=== PATIENT | female | born 1970 | race Caucasian/White ===

== ENCOUNTER → 2019-09-05 10:22 | Outpatient (BNVA) | payer SELFPAY | PROVIDERS: Family Provider Nurse Practitioner; PCP Nurse Practitioner; Visit Provider Obstetrics & Gynecology Female Pelvic Medicine and Reconstructive Surgery | DX: R35.0 Frequency of micturition (principal) | CPT/HCPCS: 81001 ==

== ENCOUNTER → 2020-01-11 11:52 | Outpatient (BNVA) | payer SELFPAY | PROVIDERS: Family Provider Nurse Practitioner; PCP Nurse Practitioner Family; Visit Provider Nurse Practitioner Family | DX: E11.9 Type 2 diabetes mellitus without complications (principal); F41.9 Anxiety disorder, unspecified; R35.0 Frequency of micturition; K21.9 Gastro-esophageal reflux disease without esophagitis; J44.9 Chronic obstructive pulmonary disease, unspecified; N39.3 Stress incontinence (female) (male) | CPT/HCPCS: 80053; 80061; 81000; 82607; 83036; 84443; 85025 ==

== ENCOUNTER → 2020-01-17 09:29 | Outpatient (BNVA) | payer SELFPAY | PROVIDERS: Family Provider Nurse Practitioner; PCP Nurse Practitioner Family; Visit Provider Nurse Practitioner Family | DX: D64.9 Anemia, unspecified (principal) | CPT/HCPCS: 85025 ==

== ENCOUNTER → 2020-01-24 09:47 | Outpatient (BNVA) | payer SELFPAY | PROVIDERS: Family Provider Nurse Practitioner; PCP Nurse Practitioner Family; Visit Provider Nurse Practitioner Family | DX: D64.9 Anemia, unspecified (principal) | CPT/HCPCS: 85025 ==

== ENCOUNTER → 2020-02-07 09:49 | Outpatient (BNVA) | payer SELFPAY | PROVIDERS: Family Provider Nurse Practitioner; PCP Nurse Practitioner Family; Visit Provider Nurse Practitioner Family | DX: D64.9 Anemia, unspecified (principal) | CPT/HCPCS: 85025 ==

== ENCOUNTER 2020-03-08 11:47 | Emergency (ER) | payer SELFPAY ==
[2020-03-08 12:28] VITALS: BP 142/89; PULSE 73; RESP 14; TEMP 36.2; O2SAT 98; BMI 28.3
--- NOTE | 2020-03-08 12:31 | XR_ITS ---
WS: [id number] Left elbow, 3 views, 03/08/2020 Clinical Data: FALL Comparison: None. Findings: There is a dislocation of the elbow posteriorly. There is a small fracture fragment which is adjacent to the left radial head. The donor site of the f racture fragment is probably the anterior spur of the olecranon. XR/XR elbow LT min 3V* [id number] Impression: 1. Dislocation of the olecranon and radial head posteriorly from the distal lef t humerus. 2. Fracture of the olecranon spur.
--- NOTE | 2020-03-08 12:31 | XR_ITS ---
WS: [id number] Left wrist, 3 views, 03/08/2020 Clinical Data: FALL Comparison: Left wrist, 11/24/2017. Findings: There is a comminuted impacted dorsally displaced fracture of the distal left radius. There is an uln ar styloid fracture. The carpal bones are intact. Soft tissue swelling about the fracture site is not ed. XR/XR wrist LT min 3V* [id number] Impression: Dorsally displaced comminuted fracture of distal left radius along with simple fracture of the ulnar styloid.
[2020-03-08 12:47] VITALS: RESP 18
--- NOTE | 2020-03-08 12:56 | XR_ITS ---
WS: [id number] Left arm and humerus, 2 views, 03/08/2020 Clinical Data: Fall/injury Comparison: None. Findings: The shaft of the left humerus is intact. The visualized left shoulder shows no abnormalities. There i s a dislocation of the olecranon and radial head posteriorly from the distal left humerus. The soft t issues are normal. XR/[place] [id number] Impression: 1. Dislocated left elbow. 2. Intact left humeral shaft.
--- NOTE | 2020-03-08 12:56 | XR_ITS ---
WS: [id number] Left forearm, AP and lateral views, 03/08/2020 Clinical Data: Fall/injury Comparison: None. Findings: The left elbow dislocation again is visible. There is a comminuted impacted dorsally displaced fractu re of the distal left radius. The shaft of the ulna is intact. The shaft of the radius is intact XR/XR forearm LT 2V 12741 Impression: 1. Left elbow dislocation. 2. Impacted dorsally displaced fracture of the distal left radius.
--- NOTE | 2020-03-08 12:57 | ED_ITS ---
HPI - Extremity Problem General: Chief complaint: Extremity Injury, Upper Stated complaint: L ARM INJURY Time Seen by Provider: 03/08/20 12:40 Source: patient Mode of arrival: ambulatory Limitations: no limitations History of Present Illness: HPI Narrative: Alaina is a nice 49-year-old female who comes in complaining of left arm pain after falling. She states she just fell off the back gate of a pickup truck landing on her left arm. She has pain primarily in her elbow and wrist. She denies any head or neck pain or injury. She had no loss of consciousness. She denies any injuries or pain to her torso. She states she has pain primarily at the wrist with the elbow hurts a good deal as well. Patient denies any numbness or weakness of her hand or fingers but does state that she has increased pain when she tries to move her left arm at all. Patient denies any other injuries or concerns at this time. Associated symptoms: Deny chest pain, fever(s) or rash Review of Systems Const: Denies: fever(s) Eyes: Denies: change in vision or blurry vision ENMT: Denies: throat pain or hoarseness Card: Denies: chest pain, palpitations, syncope, pre-syncope or dyspnea on exertion Resp: Denies: dyspnea, productive cough or non-productive cough GI: Denies: abdominal pain, nausea, vomiting or diarrhea : Denies: flank pain, dysuria, urinary frequency or urinary urgency Musc: Reports: extremity pain and joint pain; Denies: neck pain or back pain Skin/Breast: Denies: rash or pruritus Neuro: Denies: headache(s), numbness in extremities, weakness in extremities or dizziness [facility] PFSH: Medical History (Updated 03/08/20 @ 14:56 by Jennifer Fonseca) Anemia Diagnosed with anemia in 2018 thought secondary to menorrhagia and was taking iron and vitamin B12. Anxiety Chronic GERD Managed with Nexium. Has not had an endoscopy. COPD (chronic obstructive pulmonary disease) Diagnosed in 2017 and controlled with medication. Surgical History History of delivery (~1990) done by a vertical midline infraumbilical incision History of tubal ligation (~2000) laparoscopic procedure after last childbirth Hx of cholecystectomy (~1989) open procedure done by right upper quadrant incision Status post surgery (~2007) stone extracted from common bile duct, with stent Family History Mother Diabetes Hypertension Father Diabetes Hypertension Colon cancer Diagnosed at age 69 Stroke Grandmother Colon cancer maternal--diagnosed in her 80s Denies family history of Ovarian cancer Breast cancer Anesthesia complication Uterine cancer Social History Smoking and tobacco status: current every day smoker cigarettes Packs smoked per day: 0.5 Years cigarettes smoked: 30 Second hand smoke exposure: Yes Alcohol intake: never Lives independently: Yes Household members: spouse Marital status: History of recent travel: No Current gender identity: Female Additional social history: - Tobacco Use: She started smoking at 12 years old and currently smokes 1/2 pack per day.she is not motivated to cut down Drug Use: Denies Alcohol Use: Denies Current Work/Study: 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 She states that her is paralyzed and she takes care of him Physical Exam Const: COMMON NORMALS: no acute distress, patient oriented x3, no limitations, healthy appearing and well nourished GENERAL APPEARANCE: cooperative, well kempt and well developed HENMT: COMMON NORMALS: normocephalic, atraumatic, external ears normal, EAC's normal and Normal external nose present HEAD & SCALP: normal to inspection, normocephalic and atraumatic FACE & SINUS: normal facial exam and face symmetric NOSE: Normal external nose present and Normal nares present EXTERNAL EAR: Yes external ears normal EXTERNAL AUDITORY CANAL: EAC's normal MOUTH: Normal oral and palatal mucosa present, lip normal and tongue normal Eye: COMMON NORMALS: Equal, round and reactive pupils present and conjunctivae normal GENERAL EYE: appearance normal, both eyes and all related structures ALIGNMENT: Yes alignment normal PERIORBITAL: periorbital findings normal EYELID: eyelids normal CONJUNCTIVA: Yes conjunctivae normal SCLERA: sclerae normal PUPIL: Yes Equal, round and reactive pupils present Neck/C-Spine: COMMON NORMALS: full ROM, no lymphadenopathy, supple, no meningeal signs and no JVD GENERAL: Yes normal visual inspection and Yes trachea midline Chest: COMMONS NORMALS: normal inspection of the chest and normal palpation of entire chest wall Resp: COMMON NORMALS: normal respiratory effort, No retractions, No use of accessory muscles and clear to auscultation bilaterally EFFORT & INSPECTION: Yes able to speak in complete sentences and Yes symmetric chest movement AUSCULTATION: clear to auscultation bilaterally, no crackles, no rales, no rhonchi and no wheezes Cardio: COMMON NORMALS: no JVD, regular rate, regular rhythm, S1 normal heart sound present and S2 normal heart sound present RATE: regular rate RHYTHM: regular rhythm HEART SOUNDS: S1 normal heart sound present, S2 normal heart sound present, no click, no gallops, no murmurs, no rubs and abnormal split S2 GI: COMMON NORMALS: Soft to palpation and No hepatosplenomegaly present PALPATION: Yes Soft to palpation, No Tenderness to palpation present (GI), No Guarding due to palpation present (GI), No Rigid due to palpation, Yes No hepatosplenomegaly present, No Hernia present, No Palpable mass present and No Pulsatile mass present : COMMON NORMALS: Yes no CVA tenderness BLADDER/KIDNEY EXAM: Yes no CVA tenderness EXTERNAL FEMALE EXAM: No Hernia present Back/Pelvis: COMMON NORMALS: no CVA tenderness, thoracic and lumbar spine normal to inspection, no thoracic nor lumbar tenderness and thoraco-lumbar ROM normal Extremity: COMMON NORMALS: capillary refill normal, no clubbing, cyanosis or edema and no calf tenderness NARRATIVE EXTREMITY EXAM: Left elbow tender to palpation with mild swelling. Limited range of motion secondary to pain. Left wrist tenderness and swollen to palpation. Strong radial pulse and normal sensation and muscle strength to the fingers. Neuro: COMMON NORMALS: patient oriented x3, CN's II-XII intact bilaterally, moves all extremities, no focal motor deficits and no sensory deficits noted MENINGEAL SIGNS: Yes no meningeal signs SPEECH: speech normal Psych: COMMON NORMALS: mental status grossly normal, Normal thought process present, cooperative, normal affect, speech normal and activity/motor behavior normal APPEARANCE: Yes well kempt SPEECH: Yes normal speech THOUGHT PROCESS: Normal thought process present Skin: COMMON NORMALS: no rashes or lesions noted, turgor normal, no jaundice, no petechiae and no mottling GENERAL SKIN EXAM: no rashes or lesions noted and turgor normal Procedures Orthopedic Joint Reduction Joint #1: Time Out Performed: Yes Side: left Joint Reduction Location: elbow Analgesia: procedural sedation Technique used: traction/counter-traction Post-reduction neuro exam: intact Post-reduction vascular: intact Post Reduction X-Ray Obtained: Yes Post Reduction X-Ray Results: reduced Splint Applied: Yes Patient Tolerated Procedure: well Procedural Sedation Indication: fracture/dislocation reduction Presedation Evaluation: As above ASA Class: I Preparation: cardiac monitor technician applied, pulse oximeter, supplemental O2 applied, reversal agents at bedside, suction/airway equipment at bedside and IV secured IV Propofol dose (mg): 175 Complications: none Course Vital Signs: Vital signs: Vital Signs Temperature 97.2 F L 03/08/20 12:28 Pulse Rate 81 03/08/20 15:23 Respiratory Rate 18 03/08/20 15:23 Blood Pressure 123/85 03/08/20 15:23 Pulse Oximetry 98 03/08/20 15:23 MDM - Extremity (Nontraumatic) MDM Narrative: Medical decision making narrative: The case had been reviewed with Dr. Calix he felt the patient would need referral to a hand surgeon. I discussed the case with Dr. Duenas at [facility]. He has reviewed the x-rays and agrees to see the patient tomorrow at his office at 11 AM with probable surgery. Patient has been reduced and he agrees that this is a good reduction and he will arrange for surgery tomorrow. She understands remain n.p.o. and will follow-up there at 11 AM. The patient's elbow was reduced adequately while here in the ER with Dr. Duenas agreed her wrist was significant and would likely have to be definitively fixed in the OR. He did not think an attempt at this time would be necessary. Lab Data: Labs: Lab Results 03/08/20 Range/Units 13:40 SARS-CoV-2 Ag (Rap id) Negative (Negative) Imaging Data^: Right shoulder/Humerus: Attestation: I personally reviewed and interpreted this imaging study as f rei: My impression: No acute fractures dislocation Right Elbow: Attestation: I personally reviewed and interpreted this imaging study as follows: My impression: Posterior dislocation with chip fracture of uncertain source Right Elbow Post Reduction: Attestation: I personally reviewed and interpreted this imaging study as follows: My impression: Satisfactory reduction of left elbow Right forearm: Attestation: I personally reviewed and interpreted this imaging study as follows: My impression: No midshaft forearm fractures, see wrist x-ray for details Right wrist: Attestation: I personally reviewed and interpreted this imaging study as follows: My impression: Comminuted distal radius fracture and ulnar styloid fracture. Dorsal displacement present. Discharge Plan Discharge Patient Disposition: Home Clinical Impression: Dislocation closed, elbow Qualifiers: Encounter type: initial encounter Laterality: left Qualified Code(s): S53.105A - Unspecified dislocation of left ulnohumeral joint, initial encounter Left wrist fracture Qualifiers: Encounter type: initial encounter Fracture type: closed Qualified Code(s): S62.102A - Fracture of unspecified carpal bone, left wrist, initial encounter for closed fracture Condition: Stable Prescriptions: [place] 5-325 mg tablet 1 tab PO Q6H PRN (Reason: pain) 5 Days Qty: 20 RF: 0 Zofran 4 mg tablet 4 mg PO Q6H PRN (Reason: nausea and vomiting) Qty: 20 RF: 0 No Action albuterol sulfate 1.25 mg/3 mL solution for nebulization 1.25 mg INHALATION QID PRNRF: 0 lisinopril 2.5 mg tablet 2.5 mg PO DAILY Qty: 30 RF: 5 sertraline [Zoloft] 100 mg tablet 100 mg PO DAILY Qty: 30 RF: 5 esomeprazole magnesium [Nexium] 40 mg capsule,delayed release(DR/EC) 40 mg PO DAILY Qty: 30 RF: 5 fluticasone propion-salmeterol [Advair Diskus] 250-50 mcg/dose blister with device 1 inh INHALATION BID Qty: 60 RF: 5 albuterol sulfate [ProAir HFA] 90 mcg/actuation HFA aerosol inhaler 2 puff INHALATION Q6H PRN (Reason: shortness of breath or wheezing) Qty: 18 RF: 2 montelukast [Singulair] 10 mg tablet 10 mg PO DAILY Qty: 30 RF: 5 diclofenac sodium 75 mg tablet,delayed release (DR/EC) 75 mg PO BID PRN (Reason: pain) Qty: 60 RF: 2 atorvastatin 20 mg tablet 20 mg PO DAILY Qty: 30 RF: 5 amitriptyline 25 mg tablet 25 mg PO DAILY Qty: 30 RF: 2 Discharge Orders: Discharge Order (Routine); Ordered 03/08/20 Ordered By: Jennifer Fonseca Referrals: Geneva Lackey FNP [Primary Care Provider] - 4-7 days Discharge Diet: Usual diet Discharge Activity: Limit activity as instructed Patient Instructions: Elbow Dislocation (ED), Wrist Fracture in Adults (ED) Activity Restrictions/Additional Instructions: Please return to the ER immediately for any of the signs or symptoms listed on your discharge instruction sheets, worsening/changing of your symptoms, you are not getting better as quickly as expected, or for ANY other cause or concerns. Call today to ensure what time you will need to be present and have your surgery tomorrow by Dr. Duenas. His office number is [phone]. Be certain to call today for instructions on where to be tomorrow as he is expecting you at the [facility] on [address] at 11 AM. Discharge Date/Time: 03/08/20 15:28 Coding Level of Care Code ED Cut Off Saw Operator for Vicky Fwd Exam Comprehensive
[2020-03-08] MEDS: morphine 4 mg/mL SDV 1 mL IVP (13:20)
[2020-03-08] MEDS: ondansetron 2 mg/ML SDV 2 mL 4 MG IVP (13:20)
[2020-03-08] MEDS: sodium chloride 0.9% 1,000 ML 100 ML IV (13:21)
[2020-03-08 14:05] VITALS: BP 138/80; PULSE 88; RESP 18; O2SAT 98
[2020-03-08 14:08] LABS: SARS Covid-2 Antigen Negative (Negative)
--- NOTE | 2020-03-08 14:17 | XR_ITS ---
NOTE: Report was unsigned for reason: Order was edited. Original Signature date and time was: 03/08/2020 1436 WS: [id number] Left elbow, 2 views, 03/08/2020, 1416 hours Clinical Data: post reduction Comparison: Left elbow, 03/08/2020, 1308 hours Findings: The elbow has been reduced. There is a positive posterior fat pad sign. The small evulsion fracture may be overlying the left radial head. MTDD XR/XR elbow LT min 3V* 10030 Impression: Reduction of left elbow posterior dislocation.
[2020-03-08 14:27] VITALS: BP 123/85; PULSE 81; RESP 18; O2SAT 98
[2020-03-08] MEDS: propofol 10 mg/mL SDV 20 mL 250 MG IVP (14:30)
--- NOTE | 2020-03-08 14:32 | XR_ITS ---
WS: [id number] Left shoulder, 3 views, 03/08/2020 Clinical Data: Pain/injury Comparison: None. Findings: No fractures or dislocations are seen. The AC joint is normal. The adjacent left clavicle, left scapu la and ribs are normal. The soft tissues are unremarkable. XR/XR shoulder LT min 2V* [id number] Impression: Negative left shoulder.
[2020-03-08 15:23] VITALS: BP 123/85; PULSE 81; RESP 18; O2SAT 98
[2020-03-08] MEDS: HYDROcodone-acetaminophen 5-325 mg Tablet 1 TAB PO (15:27)
== END 2020-03-08 15:28 | disposition home or self-care (01) ==
PROVIDERS: Emergency Provider Emergency Medicine; PCP Nurse Practitioner Family
DX: S52.592A Other fractures of lower end of left radius, initial encounter for closed fracture (principal); S53.105A Unspecified dislocation of left ulnohumeral joint, initial encounter; S52.612A Displaced fracture of left ulna styloid process, initial encounter for closed fracture; W17.89XA Other fall from one level to another, initial encounter; J44.9 Chronic obstructive pulmonary disease, unspecified; F17.210 Nicotine dependence, cigarettes, uncomplicated
CPT/HCPCS: 12345; 24600; 73030; 73060; 73070; 73080; 73090; 73110; 87426; 96360; 96361; 96374; 96375; 99283; J2270; J2405; J2704; J7030

== ENCOUNTER → 2020-03-22 12:02 | Outpatient (BNVA) | payer SELFPAY | PROVIDERS: PCP Nurse Practitioner Family; Referring Provider Nurse Practitioner Family; Visit Provider Specialist | DX: G03.0 Nonpyogenic meningitis (principal); G43.711 Chronic migraine without aura, intractable, with status migrainosus; G62.9 Polyneuropathy, unspecified; F17.210 Nicotine dependence, cigarettes, uncomplicated | CPT/HCPCS: 99205 ==

== ENCOUNTER 2020-03-26 13:39 | Outpatient (CLI) | payer SELFPAY ==
--- NOTE | 2020-03-26 13:52 | MR_ITS ---
WS: [id number] MRI HEAD WITHOUT CONTRAST TECHNIQUE: Sagittal T1, T2 axial, T2 axial FLAIR, axial and coronal T1 images, axial susceptibility w eighted imaging, axial diffusion weighted images, and coronal T2 images were obtained. CLINICAL INFORMATION: G43.909 Migraine, unspecified, not intractable, without s... COMPARISON: December 21, 2018 FINDINGS: No evidence of restricted diffusion to suggest acute ischemia. Ventricular system and basal cisterns are patent. No suspicious intracranial signal abnormalities. Prominent cavum septum lucidum unchanged since 2017. No Hydrocephalus. Tiny chronic lacunar infarcts right cerebellum. Normal vascular flow voids at the skull base. No extr a-axial fluid collections. Paranasal sinuses and mastoid air cells are well aerated. Normal optic chi asm and pituitary infundibulum. No hemosiderin on susceptibly weighted images. No other significant findings. Temporal lobes and Reyna ocampal formations are normal in appearance. MR/MR head wo con* [id number] IMPRESSION: 1. No evidence of restricted diffusion to suggest acute ischemia. 2. No suspicious intracranial signal abnormalities. 3. Incidental cavum septum pellucidum unchanged from 2017. 4. A few tiny chronic lacunar infarcts right cerebellum. 5. No other significant findings.
== END 2020-03-26 13:40 | disposition home or self-care (01) ==
LOC: RADWPI 13:42
PROVIDERS: PCP Nurse Practitioner Family; Visit Provider Specialist
DX: G43.909 Migraine, unspecified, not intractable, without status migrainosus (principal); G62.9 Polyneuropathy, unspecified; I63.81 Other cerebral infarction due to occlusion or stenosis of small artery
CPT/HCPCS: 70551

== ENCOUNTER 2020-03-26 14:38 | Outpatient (CLI) | payer SELFPAY ==
[2020-03-26 15:41] LABS: Vitamin B12 359 pg/mL (232-1245)
[2020-03-27 12:26] LABS: Lyme AB Screen <0.90 index
[2020-03-29 16:03] LABS: E. Chaffeensis AB IGG <1:64; E. Chaffeensis AB IGM <1:20
[2020-03-29 16:27] LABS: RMSF IGG NOT DETECTED; RMSF IGM NOT DETECTED
[2020-03-30 09:21] LABS: Methylmalonic Acid 149 nmol/L (87-318)
== END 2020-03-26 14:39 | disposition home or self-care (01) ==
LOC: LAB 14:41
PROVIDERS: PCP Nurse Practitioner Family; Visit Provider Specialist
DX: G62.9 Polyneuropathy, unspecified (principal)
CPT/HCPCS: 82607; 82746; 83921; 84260; 84443; 86618; 86666; 86757

== ENCOUNTER → 2020-06-11 10:42 | Outpatient (BNVA) | payer SELFPAY | PROVIDERS: PCP Nurse Practitioner Family; Visit Provider Specialist | DX: G56.01 Carpal tunnel syndrome, right upper limb; F17.210 Nicotine dependence, cigarettes, uncomplicated; R20.0 Anesthesia of skin; G62.9 Polyneuropathy, unspecified | CPT/HCPCS: 95912; 95913 ==

== ENCOUNTER → 2020-07-31 10:27 | Outpatient (BNVA) | payer SELFPAY | PROVIDERS: PCP Nurse Practitioner Family; Visit Provider Nurse Practitioner Family | DX: J44.9 Chronic obstructive pulmonary disease, unspecified (principal); M25.561 Pain in right knee; E11.9 Type 2 diabetes mellitus without complications | CPT/HCPCS: 73562; 80053; 80061; 83036; 85025 ==

== ENCOUNTER → 2020-08-15 10:26 | Outpatient (BNVA) | payer SELFPAY | PROVIDERS: PCP Nurse Practitioner Family; Visit Provider Specialist | DX: G43.711 Chronic migraine without aura, intractable, with status migrainosus (principal); G56.01 Carpal tunnel syndrome, right upper limb; D64.9 Anemia, unspecified; F17.210 Nicotine dependence, cigarettes, uncomplicated | CPT/HCPCS: 99214 ==